=== PATIENT | female | born 1955 | race Two or more races ===

== ENCOUNTER 2021-01-29 09:05 | Outpatient (REF) | payer MEDICARE, MEDICAID, SELFPAY ==
--- NOTE | ~2021-01-29 | MM_ITS ---
EXAMINATION: MM SCREENING DIGITAL BREAST TOMOSYNTHESIS, BILATERAL CLINICAL INFORMATION: Screening. Asymptomatic. The lifetime risk of breast cancer based on the Tyrer-Cuzick Model is 7.1%. COMPARISON: Mammography: 02/04/2019. TECHNIQUE: Digital breast tomosynthesis is performed in both the craniocaudal and mediolateral oblique views along with computer-aided detection (CAD). Synthesized 2D images are generated from the tomosynthesis. FINDINGS: There are scattered areas of fibroglandular density (ACR BI-RADS breast composition Category b). There is a stable parenchymal pattern within the left breast without new abnormal dominant mass or suspicious grouping of microcalcifications. There are a few stable circumscribed densities present as well as one which has been biopsied in the past. Within the upper medial aspect of the right breast, approximately 6 cm from the nipple, there is a grouping of calcifications. It appears to be associated with a lobular density which appears to have increased in size slightly compared to previous study of 02/04/2019. Spot magnification views in craniocaudal and 90-degree mediolateral views recommended. MM/MM tomosynthesis screening BI IMPRESSION: Right breast calcifications for further evaluation as described. ASSESSMENT: BI-RADS 0: Incomplete - Need Additional Imaging Evaluation RECOMMENDATION: 1. Additional views of the right breast. 2. Targeted ultrasound if warranted after review of the additional views. 3. Radiology department staff will contact the patient for additional imaging. This patient's information was entered into a reminder system with a target due date for their next mammogram.
== END 2021-01-29 09:06 | disposition home or self-care (01) ==
LOC: HO.MAMMO 09:05
PROVIDERS: Visit Provider Internal Medicine Geriatric Medicine
DX: Z12.31 Encounter for screening mammogram for malignant neoplasm of breast (principal)
CPT/HCPCS: 77063; 77067

== ENCOUNTER 2021-02-08 11:54 | Outpatient (REF) | payer MEDICARE, MEDICAID, SELFPAY ==
--- NOTE | ~2021-02-08 | MM_ITS ---
EXAMINATION: MM DIAGNOSTIC DIGITAL MAMMOGRAPHY, RIGHT CLINICAL INFORMATION: Recall from screening for punctate calcifications central 1:00 right breast, questionable parenchymal asymmetry. COMPARISON: Mammography: 01/29/2021, 02/04/2019 TECHNIQUE: Digital mammography is performed in the following views: Magnification CC, magnification ML FINDINGS: There are scattered areas of fibroglandular density (ACR BI-RADS breast composition Category b). The background parenchymal pattern is similar to prior study 2019. There is no interval mass or architectural abnormality or developing density. The punctate calcifications for additional evaluation demonstrate uniform punctate round calcifications along with an adjacent coarser calcification. There are a few additional punctate round calcifications in this area since 2019. Otherwise, there is no substantial change. No ductal distribution. Results are discussed with the patient at time of visit. Management options discussed with patient. Management plan is for short interval follow-up right mammography to include magnification views in 6 months. MM/MM added views RT IMPRESSION: 1. There are a few additional punctate round calcifications mid 1:00 right breast since 2019. 2. Parenchymal pattern is stable. No developing density or interval mass. ASSESSMENT: BI-RADS 3: Probably Benign RECOMMENDATION: Diagnostic right mammography to include magnification views in 6 months. This patient's information was entered into a reminder system with a target due date for their next mammogram.
== END 2021-02-08 11:55 | disposition home or self-care (01) ==
LOC: HO.MAMMO 11:54
PROVIDERS: Visit Provider Internal Medicine Geriatric Medicine
DX: R92.1 Mammographic calcification found on diagnostic imaging of breast (principal)
CPT/HCPCS: 77065

== ENCOUNTER 2021-04-11 13:54 | Outpatient (REF) | payer MEDICARE, MEDICAID, SELFPAY ==
--- NOTE | ~2021-04-11 | US_ITS ---
EXAMINATION: ULTRASOUND SOFT TISSUE HEAD AND NECK. CHEST X-RAY. CLINICAL INFORMATION: Left supra clavicular mass. COMPARISON: None TECHNIQUE: Limited ultrasound imaging through the left supra clavicular palpable mass was performed. Chest x-ray 2 views. FINDINGS: Soft tissue neck: Imaging to the left supra clavicular area reveals multiple lymph nodes. There are at least 4 lymph nodes seen. 1.3 cm, 1.3 cm 0.90 cm and 0.93 cm. The larger lymph nodes measuring 1.3 cm have fatty hilum. No fatty hilum is seen in the smaller lymph nodes the lymph nodes are round. There are no lymph nodes seen in the right supra clavicular space. Chest x-ray: Well-expanded and clear of acute process. The heart size and pulmonary vascularity is normal. No gross bony abnormality seen. US/US soft tiss head and/or neck IMPRESSION: At least 4 small lymph nodes seen in the left supraclavicular space. The larger lymph nodes measuring 1.3 cm have a fatty hilum. Unremarkable chest exam.
== END 2021-04-11 13:55 | disposition home or self-care (01) ==
LOC: HO.HMGCX 13:54
PROVIDERS: Visit Provider Emergency Medicine
DX: R22.2 Localized swelling, mass and lump, trunk (principal)
CPT/HCPCS: 71046; 76536

== ENCOUNTER 2021-08-14 12:15 | Outpatient (REF) | payer MEDICARE, MEDICAID, SELFPAY ==
--- NOTE | ~2021-08-14 | MM_ITS ---
EXAMINATION: MM DIAGNOSTIC DIGITAL BREAST TOMOSYNTHESIS, RIGHT CLINICAL INFORMATION: Short interval six-month follow-up calcifications right breast. The lifetime risk of breast cancer based on the Tyrer-Cuzick Model is 6%. COMPARISON: Mammography: 02/08/2021, 01/29/2021 (BI-RADS 0), 02/04/2019 TECHNIQUE: Digital breast tomosynthesis is performed in both the craniocaudal and mediolateral oblique views along with computer-aided detection (CAD). Synthesized 2D images are generated from the tomosynthesis. Additional magnification CC and magnification ML views are obtained. FINDINGS: There are scattered areas of fibroglandular density (ACR BI-RADS breast composition Category b). The tightly grouped calcifications for follow-up central 12:30 o'clock position appear slightly increased in number. In addition, the calcification particles vary in size. Stereotactic sampling is recommended. The remainder of the right breast is unremarkable without significant change from prior studies. No developing density or interval mass or architectural abnormality. Results are discussed with the patient at time of visit. MM/MM tomosynthesis diagnostic RT IMPRESSION: Grouped calcifications for follow-up central 12:30 o'clock position appear slightly increased and vary in size. ASSESSMENT: BI-RADS 4: Suspicious (subcategory 4A: Low suspicion for malignancy) RECOMMENDATION: Stereotactic sampling right breast calcifications. This patient's information was entered into a reminder system with a target due date for their next mammogram.
--- NOTE | ~2021-08-14 | MM_ITS ---
EXAMINATION: BONE DENSITOMETRY CLINICAL INDICATION: Menopause. COMPARISON: None (current study represents initial baseline exam). TECHNIQUE: Using a [employer] DXA System (software version: 13.1) manufactured by [employer], dual-energy x-ray absorptiometry was performed of the lumbar spine and left hip. The images are of good technical quality. Summary results are attached. FINDINGS: AP SPINE L1-L4: BMD 1.140 g/cm2, Z-score 0.1, T-score -0.3, normal. LEFT FEMUR, NECK: BMD 0.866 g/cm2, Z-score -0.5, T-score -1.2, osteopenia. LEFT FEMUR, TOTAL: BMD 1.067 g/cm2, Z-score 0.9, T-score 0.5, normal. IDENTIFIED RISK FACTORS: Menopause. HISTORY OF FRACTURE: None listed. MEDICATIONS: Calcium or multivitamin. MM/XR DEXA axial skeleton IMPRESSION: 1. DIAGNOSIS: Osteopenia based on the lowest T-score value of -1.2 in the femoral neck applying World Health Organization criteria. 2. 10-YEAR FRACTURE RISK PREDICTION, FRAX: Major osteoporotic fracture (clinical spine, forearm, hip or shoulder) 3.7%. Hip fracture 0.3%. 3. Treatment Recommendations: NOF guidelines recommend consideration for treatment in postmenopausal women and men age 50 and older presenting with the following: -A hip or vertebral (clinical or morphometric) fracture. -T-score less than or equal to -2.5 at the femoral neck or spine after appropriate evaluation to exclude secondary causes. -Low bone mass at the hip or spine and a 10-year fracture probability by FRAX of greater than or equal to 3% for hip fracture or greater than or equal to 20% for major osteoporotic fracture based on the [place] adapted WHO algorithm. 4. Other Recommendations: All treatment decisions require clinical judgment and consideration of individual patient factors, including patient preferences, comorbidities, previous drug use, risk factors not captured in the FRAX model (e.g. frailty, falls, vitamin D deficiency, increased bone turnover, interval significant decline in bone density) and possible under or overestimation of fracture risk by FRAX. Additional medical evaluation for secondary cause of low bone mineral density may be appropriate. FUTURE SCAN RECOMMENDATION: People with diagnosed cases of osteoporosis or at high risk for fracture should have regular bone mineral density tests. For patients eligible for Medicare, routine testing is allowed once every 2 years. The testing frequency can be increased to one year for patients who have rapidly progressing disease, those who are receiving or discontinuing medical therapy to restore bone mass, or have additional risk factors.
== END 2021-08-14 12:16 | disposition home or self-care (01) ==
LOC: HO.MAMMO 12:15
PROVIDERS: PCP Internal Medicine Geriatric Medicine; Visit Provider Internal Medicine Geriatric Medicine
DX: Z13.820 Encounter for screening for osteoporosis (principal); R92.1 Mammographic calcification found on diagnostic imaging of breast; Z78.0 Asymptomatic menopausal state; M85.80 Other specified disorders of bone density and structure, unspecified site
CPT/HCPCS: 77061; 77065; 77080

== ENCOUNTER 2021-09-10 08:49 | Outpatient (REF) | payer MEDICARE, MEDICAID, SELFPAY ==
--- NOTE | ~2021-09-10 | MM_ITS ---
EXAMINATION: STEREOTACTIC TOMOSYNTHESIS-GUIDED VACUUM-ASSISTED BREAST BIOPSY, RIGHT SPECIMEN RADIOGRAPH, RIGHT POST PROCEDURE DIGITAL MAMMOGRAM, RIGHT CLINICAL INFORMATION: Grouped calcifications central 12:30 o'clock right breast slightly increased in number and vary in size. Stereotactic sampling recommended. COMPARISON: 08/14/2021, 02/08/2021, 01/29/2021. TECHNIQUE/PROCEDURE: Informed consent was obtained from the patient after discussion of the benefits, risks, and alternatives to biopsy today. Patient appeared to understand. Gave opportunity for questions. Patient signed consent form. BIOPSY TABLE: [employer] Affirm Prone Biopsy System. LESION: Tightly grouped calcifications central 12:30 o'clock position, possibly fibroadenomatous change. LOCAL ANESTHESIA: 10 mL carbonated 1% lidocaine; 10 mL 1% lidocaine with epinephrine. DERMATOTOMY: Single skin chetan dermatotomy performed. NEEDLE: [employer] 9-gauge vacuum assisted core biopsy device. APPROACH: craniocaudal. TARGETING: Combination of digital breast tomosynthesis and stereotactic digital mammography used for targeting. CORES: 7. CLIP: [employer] T-shaped marker. SPECIMEN RADIOGRAPH: Specimen radiograph is taken in separate room using digital mammography. The index calcifications are in the excised cores. There are at least 9 calcifications in the cores. POST PROCEDURE UNILATERAL DIGITAL MAMMOGRAM: The post biopsy mammogram is performed in separate room using separate digital mammography equipment from the biopsy procedure. CC and ML views are obtained. There are scattered areas of fibroglandular density (breast composition category: b). The clip marker is in position. The calcifications are markedly decreased at the biopsy site and no longer clearly seen. There is a small hematoma or approximately 2 cm in size. Home instructions reviewed with the patient. Final pathology results are pending. MM/MM stereotactic biopsy RT IMPRESSION: 1. Digital tomosynthesis-guided core biopsy right breast with clip placement. 2. Specimen radiograph taken and post procedure mammogram. There is satisfactory positioning of the biopsy clip. 3. Final pathology results pending. An addendum report will be issued.
[2021-09-10] MEDS: Lidocaine HCl 1 % 20 ML VIAL 9 ML SUBCUT (11:34)
[2021-09-10] MEDS: Sodium Bicarbonate 8.4% 50 MEQ/50 ML VIAL SUBCUT (11:36)
== END 2021-09-10 08:50 | disposition home or self-care (01) ==
LOC: HO.MAMMO 08:49
PROVIDERS: PCP Internal Medicine Geriatric Medicine; Visit Provider Surgery
DX: R92.1 Mammographic calcification found on diagnostic imaging of breast (principal)
CPT/HCPCS: 19081; 88305; 88341; 88342; 99202; A4648

== ENCOUNTER → 2021-09-17 09:47 | Outpatient (BNVA) | payer MEDICARE, MEDICAID, SELFPAY | PROVIDERS: PCP Internal Medicine Geriatric Medicine; Referring Provider Internal Medicine Geriatric Medicine; Visit Provider Surgery | DX: R92.1 Mammographic calcification found on diagnostic imaging of breast (principal) | CPT/HCPCS: 99212 ==

== ENCOUNTER 2021-10-17 10:13 | Outpatient (REF) | payer MEDICARE, MEDICAID, SELFPAY ==
--- NOTE | ~2021-10-17 | US_ITS ---
EXAMINATION: LEFT LOWER EXTREMITY DEEP VENOUS ULTRASOUND CLINICAL INFORMATION: Left lower extremity pain and swelling COMPARISON: None. TECHNIQUE: Duplex Doppler imaging with compression maneuvers were performed of the left lower extremity deep venous system. FINDINGS: The visualized common femoral, femoral and popliteal veins demonstrate normal compressibility and color flow without evidence of venous thrombosis. Visualized portions of the calf veins demonstrate normal color fill-in suggesting patency. There is no evidence of a Smith's cyst. US/US venous duplex LE LT IMPRESSION: No evidence of deep venous thrombosis involving the left lower extremity.
== END 2021-10-17 10:14 | disposition home or self-care (01) ==
LOC: HO.US 10:13
PROVIDERS: PCP Internal Medicine Geriatric Medicine; Visit Provider Emergency Medicine
DX: R60.0 Localized edema (principal); M79.605 Pain in left leg
CPT/HCPCS: 93971

== ENCOUNTER → 2021-12-13 14:01 | Outpatient (BNVA) | payer MEDICARE, MEDICAID, SELFPAY | PROVIDERS: PCP Internal Medicine Geriatric Medicine; Visit Provider Surgery Vascular Surgery | DX: I83.12 Varicose veins of left lower extremity with inflammation (principal) | CPT/HCPCS: 99202 ==

== ENCOUNTER 2022-02-01 10:19 | Outpatient (REF) | payer MEDICARE, MEDICAID, SELFPAY ==
--- NOTE | ~2022-02-01 | US_ITS ---
EXAMINATION: Bilateral LOWER EXTREMITY VENOUS ULTRASOUND (Reflux Exam) CLINICAL INDICATION: Left lower extremity varicose veins. COMPARISON: None. TECHNIQUE: Color flow triplex imaging and compression Doppler was performed to evaluate both the deep and the superficial systems of the lower extremities, bilaterally. To evaluate the superficial system, the examination was performed in the upright position. Color-flow Doppler ultrasound and compression ultrasound were utilized. In addition, maneuvers were utilized to demonstrate reflux. FINDINGS: RIGHT: 1. DEEP VENOUS DOPPLER ULTRASOUND: Common Femoral Vein: Compressible, normal respiratory variation and augmented flow. Femoral vein: Compressible, normal color flow and augmentation. Popliteal Vein: Compressible, normal augmentation. Deep Reflux: There is no evidence of reflux in the deep system in either the common femoral vein or the popliteal vein. There is no evidence of a Smith's cyst. 2. SUPERFICIAL VENOUS DOPPLER ULTRASOUND: GREAT SAPHENOUS VEIN: Saphenofemoral junction: 0.8 cm; No evidence of reflux. Proximal thigh: 0.7 cm; No evidence of reflux. Mid thigh: 0.5 cm; No evidence of reflux. Above knee: 0.5 cm; No evidence of reflux. At knee: 0.5 cm; No evidence of reflux. Below knee: 0.3 cm; No evidence of reflux. Mid calf: 0.2 cm; No evidence of reflux. Ankle: 0.2 cm; No evidence of reflux. DUPLICATED GREAT SAPHENOUS VEIN: None SMALL SAPHENOUS VEIN: Saphenopopliteal junction: 0.2 cm; No evidence of reflux. Mid calf: 0.3 cm; No evidence of reflux. Distal calf: 0.3 cm; No evidence of reflux. VEIN OF GIACOMINI: None Imaged. PERFORATORS: Greater saphenous vein and calf proximal: 0.2 cm; No evidence of reflux. Greater saphenous vein calf mid: 0.3 cm; No evidence of reflux. VARICOSITIES: Greater saphenous vein thigh proximal: 0.5 cm; No evidence of reflux. Greater saphenous vein thigh mid: 0.3 cm; 2660 Greater saphenous vein calf proximal: 0.3 cm; No evidence of reflux. LEFT: 1. DEEP VENOUS DOPPLER ULTRASOUND: Common Femoral Vein: Compressible, normal respiratory variation and augmented flow. Femoral vein: Compressible, normal color flow and augmentation. Popliteal Vein: Compressible, normal augmentation. Deep Reflux: There is no evidence of reflux in the deep system in either the common femoral vein or the popliteal vein. There is no evidence of a Smith's cyst. 2. SUPERFICIAL VENOUS DOPPLER ULTRASOUND (reflux time in milliseconds): GREAT SAPHENOUS VEIN: Saphenofemoral junction: 0.7 cm; No evidence of reflux. Proximal thigh: 0.3 cm; 1892 Mid thigh: 0.4 cm; 2780 Above knee: 0.5 cm; 2600 At knee: 0.4 cm; 3184 Below knee: 0.6 cm; 2820 Mid calf: 0.3 cm; No evidence of reflux. Ankle: 0.1 cm; No evidence of reflux. DUPLICATED GREAT SAPHENOUS VEIN: None SMALL SAPHENOUS VEIN: Saphenopopliteal junction: 0.2 cm; No evidence of reflux. Mid calf: 0.2 cm; 1624 Distal calf: 0.3 cm; 1944 VEIN OF GIACOMINI: None Imaged. PERFORATORS: Greater saphenous vein thigh proximal: 0.3 cm; 980 Greater saphenous vein thigh mid: 0.3 cm; No evidence of reflux. Greater saphenous vein calf proximal: 0.3 cm; No evidence of reflux. Greater saphenous vein calf proximal: 0.2 cm; 2732 VARICOSITIES: Greater saphenous vein thigh proximal: 0.4 cm; No evidence of reflux. Greater saphenous vein thigh mid: 0.4 cm; 664 Greater saphenous vein calf proximal: 0.4 cm; 2324 Other: Incidentally visualized, are 0.9 x 1.9 x 2.9 cm right inguinal lymph node demonstrating a normal fatty hilum. US/US venous duplex LE BI IMPRESSION: Reflux examination as detailed above.
== END 2022-02-01 10:20 | disposition home or self-care (01) ==
LOC: HO.US 10:19
PROVIDERS: Visit Provider Surgery Vascular Surgery
DX: I83.12 Varicose veins of left lower extremity with inflammation (principal)
CPT/HCPCS: 93970

== ENCOUNTER 2022-02-04 09:30 | Outpatient (REF) | payer MEDICARE, MEDICAID, SELFPAY ==
--- NOTE | ~2022-02-04 | MM_ITS ---
EXAMINATION: MM SCREENING DIGITAL BREAST TOMOSYNTHESIS, BILATERAL CLINICAL INFORMATION: Screening. Asymptomatic. Benign right stereotactic biopsy 09/10/2021 (benign breast tissue with fibroadenomatous change, adenosis, and microcalcifications). The lifetime risk of breast cancer based on the Tyrer-Cuzick Model is 7%. COMPARISON: Mammography: 09/10/2021, 08/14/2021, 02/08/2021, 01/29/2021 TECHNIQUE: Digital breast tomosynthesis is performed in both the craniocaudal and mediolateral oblique views along with computer-aided detection (CAD). Synthesized 2D images are generated from the tomosynthesis. FINDINGS: There are scattered areas of fibroglandular density (ACR BI-RADS breast composition Category b). Parenchymal pattern is similar to prior studies. There is no developing density or interval mass or architectural abnormality. No interval abnormal calcifications. Again, there is a stable dominant nodule anterior 2:30 left breast with central biopsy clip marker. There is new biopsy clip marker central inner right breast corresponding to the stereotactic biopsy earlier this year. The axilla are unremarkable. MM/MM tomosynthesis screening BI IMPRESSION: No mammographic evidence of malignancy. ASSESSMENT: BI-RADS 2: Benign RECOMMENDATION: Routine annual mammography screening. This patient's information was entered into a reminder system with a target due date for their next mammogram.
== END 2022-02-04 09:31 | disposition home or self-care (01) ==
LOC: HO.MAMMO 09:30
PROVIDERS: PCP Internal Medicine Geriatric Medicine; Visit Provider Internal Medicine Geriatric Medicine
DX: Z12.31 Encounter for screening mammogram for malignant neoplasm of breast (principal)
CPT/HCPCS: 77063; 77067

== ENCOUNTER → 2022-02-07 08:40 | Outpatient (BNVA) | payer MEDICARE, MEDICAID, SELFPAY | PROVIDERS: PCP Internal Medicine Geriatric Medicine; Visit Provider Surgery Vascular Surgery | DX: I83.12 Varicose veins of left lower extremity with inflammation (principal) | CPT/HCPCS: 99212 ==

== ENCOUNTER → 2022-03-01 09:11 | Outpatient (BNVA) | payer MEDICARE, MEDICAID, SELFPAY | PROVIDERS: PCP Internal Medicine Geriatric Medicine; Visit Provider Surgery Vascular Surgery | DX: I83.12 Varicose veins of left lower extremity with inflammation (principal) | CPT/HCPCS: 36482 ==

== ENCOUNTER 2022-03-04 13:43 | Outpatient (REF) | payer MEDICARE, MEDICAID, SELFPAY ==
--- NOTE | ~2022-03-04 | US_ITS ---
EXAMINATION: US VENOUS ULTRASOUND WITH DOPPLER LOWER EXTREMITY, LEFT CLINICAL INFORMATION: Pain status post Venaseal 3 days ago COMPARISON: Bilateral lower extremity reflux ultrasound February 01, 2022 TECHNIQUE: Ultrasound of the deep veins is performed from the hip to the calf with compression sonography and color and pulse Doppler assessment. Spectral analysis with color-flow imaging is performed. FINDINGS: The visualized common femoral vein, superficial femoral vein, profunda femoral vein, popliteal vein, and the trifurcation region shows no evidence of deep venous thrombosis. Visualized portions of the peroneal and posterior tibial veins demonstrate normal color flow consistent with patency. There is no significant popliteal fossa cyst. The left great saphenous vein demonstrates internal echogenicities and is incompletely compressible consistent with recent Venaseal procedure. Thrombus within the great saphenous vein extends to within 5 mm of the common femoral vein, however, no definitive thrombus is identified within the deep system. US/US venous duplex LE LT IMPRESSION: The left great saphenous vein demonstrates internal echogenicities and is incompletely compressible consistent with recent Venaseal procedure. Thrombus within the great saphenous vein extends to within 5 mm of the common femoral vein, however, no definitive thrombus is identified within the deep system.
== END 2022-03-04 13:44 | disposition home or self-care (01) ==
LOC: HO.US 13:43
PROVIDERS: Visit Provider Surgery Vascular Surgery
DX: M79.605 Pain in left leg (principal)
CPT/HCPCS: 93971

== ENCOUNTER → 2022-03-12 09:24 | Outpatient (BNVA) | payer MEDICARE, MEDICAID, SELFPAY | PROVIDERS: PCP Internal Medicine Geriatric Medicine; Visit Provider Surgery Vascular Surgery | DX: I83.12 Varicose veins of left lower extremity with inflammation (principal) | CPT/HCPCS: 99212 ==

== ENCOUNTER → 2022-03-29 09:11 | Outpatient (BNVA) | payer MEDICARE, MEDICAID, SELFPAY | PROVIDERS: PCP Internal Medicine Geriatric Medicine; Visit Provider Surgery Vascular Surgery | DX: I83.12 Varicose veins of left lower extremity with inflammation (principal) | CPT/HCPCS: 36475 ==

== ENCOUNTER 2022-04-01 15:37 | Outpatient (REF) | payer MEDICARE, MEDICAID, SELFPAY ==
--- NOTE | ~2022-04-01 | US_ITS ---
EXAMINATION: US VENOUS ULTRASOUND WITH DOPPLER LOWER EXTREMITY, LEFT CLINICAL INFORMATION: Pain left leg COMPARISON: None TECHNIQUE: Ultrasound of the deep veins is performed from the hip to the calf with compression sonography and color and pulse Doppler assessment. Spectral analysis with color-flow imaging is performed. FINDINGS: There is normal venous compression and respiratory variation and augmented flow. The visualized common femoral vein, superficial femoral vein, profunda femoral vein, popliteal vein, and the trifurcation region shows no evidence of deep venous thrombosis. There is no significant popliteal fossa cyst. The superficial saphenous vein is closed from the proximal to distal segment of the calf. It is not clearly visualized in the lower thigh region. If the patient's symptoms persist, followup ultrasound in 5 days 7 days might be of value to exclude proximal propagation from a non-visualized calf vein. US/US venous duplex LE IMPRESSION: No DVT demonstrated in the left lower extremity.
== END 2022-04-01 15:38 | disposition home or self-care (01) ==
LOC: HO.US 15:37
PROVIDERS: Visit Provider Surgery Vascular Surgery
DX: M79.605 Pain in left leg (principal)
CPT/HCPCS: 93971

== ENCOUNTER → 2022-04-11 08:51 | Outpatient (BNVA) | payer MEDICARE, MEDICAID, SELFPAY | PROVIDERS: PCP Internal Medicine Geriatric Medicine; Visit Provider Surgery Vascular Surgery | DX: I83.12 Varicose veins of left lower extremity with inflammation (principal) | CPT/HCPCS: 99212 ==

== ENCOUNTER 2023-02-25 09:00 | Outpatient (REF) | payer MEDICARE, MEDICAID, SELFPAY ==
[2023-02-25 12:16] LABS: Alanine Aminotransferase 17 U/L (0-31); Aspartate Amino Transferase 17 U/L (5-31); Cholesterol 130 mg/dL (<200); HDL Cholesterol 53 mg/dL (>40); LDL Cholesterol Calculated 63 mg/dL (<100); Triglycerides 72 mg/dL (<150)
== END 2023-02-25 09:01 | disposition home or self-care (01) ==
LOC: HO.HHCL 09:00
PROVIDERS: Visit Provider Internal Medicine Cardiovascular Disease
DX: R03.0 Elevated blood-pressure reading, without diagnosis of hypertension (principal); E78.5 Hyperlipidemia, unspecified
CPT/HCPCS: 36415; 80061; 84450; 84460

== ENCOUNTER 2023-02-26 09:49 | Outpatient (REF) | payer MEDICARE, MEDICAID, SELFPAY ==
--- NOTE | ~2023-02-26 | MM_ITS ---
EXAMINATION: MM SCREENING DIGITAL BREAST TOMOSYNTHESIS, BILATERAL CLINICAL INFORMATION: Screening. Asymptomatic. COMPARISON: Mammography: This study is compared with prior exams dating back to 2019. TECHNIQUE: Digital breast tomosynthesis is performed in both the craniocaudal and mediolateral oblique views along with computer-aided detection (CAD). Synthesized 2D images are generated from the tomosynthesis. FINDINGS: There are scattered areas of fibroglandular density (ACR BI-RADS breast composition Category b). There is a benign, oval mass in the upper outer quadrant of the left breast. It contains coarse calcification and a biopsy tissue marker. This mass is compliance representative dealer of an involuting fibroadenoma. In the right breast, there are no significant masses, abnormal calcifications, or other abnormalities. There is tissue marker present in the superior aspect of the right breast from prior benign percutaneous biopsy. MM/MM tomosynthesis screening BI IMPRESSION: No mammographic evidence of malignancy. ASSESSMENT: BI-RADS BI-RADS 2 - Benign Findings RECOMMENDATION: Routine annual mammography screening. 1 year F/U This examination should not preclude the clinical evaluation of a suspicious palpable abnormality. This patient's information was entered into a reminder system with a target due date for their next mammogram.
== END 2023-02-26 09:50 | disposition home or self-care (01) ==
LOC: HO.MAMMO 09:49
PROVIDERS: PCP Internal Medicine Geriatric Medicine; Visit Provider Internal Medicine Geriatric Medicine
DX: Z12.31 Encounter for screening mammogram for malignant neoplasm of breast (principal)
CPT/HCPCS: 77063; 77067

== ENCOUNTER → 2023-02-26 10:15 | Outpatient (BNV) | payer MEDICARE, MEDICAID, SELFPAY | PROVIDERS: PCP Internal Medicine Geriatric Medicine; Visit Provider Radiology Diagnostic Radiology | DX: Z12.31 Encounter for screening mammogram for malignant neoplasm of breast (principal) | CPT/HCPCS: 77063; 77067 ==

== ENCOUNTER 2023-08-11 09:39 | Outpatient (REF) | payer MEDICARE, MEDICAID, SELFPAY ==
--- NOTE | ~2023-08-11 | XR_ITS ---
EXAMINATION: XR KNEE, LEFT CLINICAL INFORMATION: Pain of left knee for 2 weeks. COMPARISON: None available. TECHNIQUE: Four views of the left knee. FINDINGS: Large body habitus. Moderate narrowing of medial tibiofemoral joint space with marginal osteophyte formation. Small osteophytes are present at the lateral tibiofemoral compartment. Also, osteophyte formation is noted at the patellofemoral joint. No joint effusion or focal soft tissue swelling. XR/XR knee LT 2V IMPRESSION: Tricompartmental osteoarthritis of the left knee. The joint degeneration is worst (moderate in degree) at the medial tibiofemoral compartment.
== END 2023-08-11 09:40 | disposition home or self-care (01) ==
LOC: HO.HHCX 09:39
PROVIDERS: Visit Provider Student in an Organized Health Care Education/Training Program
DX: Z13.89 Encounter for screening for other disorder (principal)
CPT/HCPCS: 73560

== ENCOUNTER 2023-08-11 10:09 | Outpatient (REF) | payer MEDICARE, MEDICAID, SELFPAY ==
[2023-08-11 11:49] LABS: Cholesterol 152 mg/dL (<200); HDL Cholesterol 53 mg/dL (>40); LDL Cholesterol Calculated 78 mg/dL (<100); Triglycerides 107 mg/dL (<150)
== END 2023-08-11 10:10 | disposition home or self-care (01) ==
LOC: HO.HHCL 10:09
PROVIDERS: Visit Provider Internal Medicine Cardiovascular Disease
DX: Z13.6 Encounter for screening for cardiovascular disorders (principal); R03.0 Elevated blood-pressure reading, without diagnosis of hypertension; M25.562 Pain in left knee; G89.29 Other chronic pain
CPT/HCPCS: 36415; 73560; 80061

== ENCOUNTER 2024-02-24 16:31 | Outpatient (REF) | payer MEDICARE, MEDICAID, SELFPAY ==
[2024-02-26 14:23] LABS: HPV mRNA E6/E7 Not Detected (Not Detected)
[2024-02-27 12:02] LABS: C. trachomatis RNA TMA NOT DETECTED
[2024-02-27 12:03] LABS: N. gonorrhoeae RNA TMA NOT DETECTED; Trichomonas (NAAT) NOT DETECTED
== END 2024-02-24 16:32 | disposition home or self-care (01) ==
LOC: HO.HHCLNP 16:31
PROVIDERS: Visit Provider Advanced Practice Midwife
DX: Z12.4 Encounter for screening for malignant neoplasm of cervix (principal); N95.0 Postmenopausal bleeding; Z11.3 Encounter for screening for infections with a predominantly sexual mode of transmission
CPT/HCPCS: 36415; 87491; 87591; 87624; 87661; 88175

== ENCOUNTER 2024-03-02 12:30 | Outpatient (REF) | payer MEDICARE, MEDICAID, SELFPAY ==
--- NOTE | ~2024-03-02 | US_ITS ---
EXAMINATION: US PELVIS COMPLETE CLINICAL INFORMATION: postmenopausal bleeding. COMPARISON: None TECHNIQUE: Transabdominal and transvaginal images of the pelvis were obtained. Color and spectral Doppler evaluation of the ovaries was performed. FINDINGS: UTERUS: Anteverted. Normal size and contour, measuring 10 x 3 x 4.5 cm (cervix to fundus x AP x transverse). Uniform, homogeneous endometrium measures 0.4 cm in width. Nabothian cysts incidentally noted. RIGHT OVARY: Not visualized LEFT OVARY: Not visualized Arterial and venous waveforms are identified in both ovaries on spectral Doppler assessment. FREE FLUID: No pelvic free fluid. US/US pelvic and transvaginal IMPRESSION: 1. Normal endometrium measures 0.4 cm in width. No abnormality on this sonographic exam of the uterus. 2. Nonvisualization of the ovaries. Electronically signed by: Valentina Dodd DO 03/04/2024 12:07 PM EDT
== END 2024-03-02 12:31 | disposition home or self-care (01) ==
LOC: HO.US 12:30
PROVIDERS: PCP Internal Medicine Geriatric Medicine; Visit Provider Advanced Practice Midwife
DX: N95.0 Postmenopausal bleeding (principal)
CPT/HCPCS: 76830; 76856

== ENCOUNTER 2024-03-03 09:44 | Outpatient (REF) | payer MEDICARE, MEDICAID, SELFPAY ==
--- NOTE | ~2024-03-03 | MM_ITS ---
EXAMINATION: MM SCREENING DIGITAL BREAST TOMOSYNTHESIS, BILATERAL CLINICAL INFORMATION: Screening. Asymptomatic. COMPARISON: Mammography: Comparison is made with available priors TECHNIQUE: Digital breast mammography with tomosynthesis is performed in both the craniocaudal and mediolateral oblique views along with computer-aided detection (CAD). FINDINGS: There are scattered areas of fibroglandular density (ACR BI-RADS breast composition Category b). Marker clip in the left breast from previous needle core biopsy. There are no significant masses, abnormal calcifications, or other abnormalities. MM/MM tomosynthesis screening BI IMPRESSION: No mammographic evidence of malignancy. ASSESSMENT: BI-RADS BI-RADS 2 - Benign Findings RECOMMENDATION: Routine annual mammography screening. 1 year F/U This examination should not preclude the clinical evaluation of a suspicious palpable abnormality. This patient's information was entered into a reminder system with a target due date for their next mammogram. Electronically signed by: Asye Lewis DO 03/15/2024 03:50 PM [facility]
== END 2024-03-03 09:45 | disposition home or self-care (01) ==
LOC: HO.MAMMO 09:44
PROVIDERS: PCP Internal Medicine Geriatric Medicine; Visit Provider Internal Medicine Geriatric Medicine
DX: Z12.31 Encounter for screening mammogram for malignant neoplasm of breast (principal)
CPT/HCPCS: 77063; 77067

== ENCOUNTER → 2024-03-03 09:50 | Outpatient (BNV) | payer MEDICARE, MEDICAID, SELFPAY | PROVIDERS: PCP Internal Medicine Geriatric Medicine; Visit Provider Internal Medicine | DX: Z12.31 Encounter for screening mammogram for malignant neoplasm of breast (principal) | CPT/HCPCS: 77063; 77067 ==